=== PATIENT | male | born 1995 | race Caucasian/White ===

== ENCOUNTER 2021-03-18 22:26 | Emergency (ER) | payer BC, MEDICAID ==
[~2021-03-18] VITALS: Ht 195.6 cm; Wt 81.6 kg
[2021-03-18 22:42] VITALS: BP 140/87
[2021-03-18 23:14] LABS: BASOPHILS % (AUTO) 0 % (0-10); EOSINOPHILS # (AUTO) 0.1 10^3/uL (0.0-0.3); EOSINOPHILS % (AUTO) 2 % (0-10); HEMATOCRIT 45 % (40-54); HEMOGLOBIN 15.4 g/dL (13.3-17.7); LYMPHOCYTES % (AUTO) 17 % (12-44); MEAN CORPUSCULAR HEMOGLOBIN 30 pg (25-34); MEAN CORPUSCULAR HGB CONC 34 g/dL (32-36); MEAN CORPUSCULAR VOLUME 87 fL (80-99); MEAN PLATELET VOLUME 9.4 fL (9.0-12.2); MONOCYTES # (AUTO) 1.3 10^3/uL (0.0-1.0); MONOCYTES % (AUTO) 22 % (0-12); NEUTROPHILS # (AUTO) 3.3 10^3/uL (1.8-7.8); NEUTROPHILS % (AUTO) 58 % (42-75); PLATELET COUNT 225 10^3/uL (130-400); WHITE BLOOD COUNT 5.7 10^3/uL (4.3-11.0)
[2021-03-18] MEDS ORDERED: NS IV 1000 ML 1,000 ML IV SCH (23:15)
[2021-03-18] MEDS ORDERED: ACETAMINOPHEN 500 MG TAB (TYLENOL) PO ONE (23:15)
--- NOTE | 2021-03-18 23:16 | ED General ---
General Chief Complaint: Fever-Adult/Adol Stated Complaint: COVID POSITIVE Nursing Triage Note: AMBULATES TO ROOM #9 W/CO FEVER AND DIZZINESS STATES HIS TESTED + FOR COVID-19 "SEVERAL DAYS AGO" AND HE BEGAN TO EXPERIENCE SX ON 03/17/21. PT NOTED TO BE ANXIOUS AND HYPERVENTILATING. STATES HIS EXTREMITIES ARE NUMB. PT STATES,"I FEEL LIKE MY BRAIN IS SWOLLEN." Source of Information: Patient Exam Limitations: No Limitations History of Present Illness Date Seen by Provider: Mar 18, 2021 Time Seen by Provider: 23:00 Initial Comments Patient is a 25-year-old male who presents to the emergency department today with a chief complaint of being exposed to Covid. His tested positive for Covid several days ago and he started experiencing symptoms yesterday. From what I can get out of the patient he is having generalized malaise and fatigue. He is having some shortness of breath. He is having some diarrhea. He has had fever. He has been taking Tylenol and/or ibuprofen, he is unclear and states that his has been giving it to him. He thinks his last dose was around 8:00 this evening. He is obviously having an anxiety attack and quite tachypneic with oxygen saturations at 100%. Complaining of numbness and tingling to his hands and feet. Otherwise the patient is in no acute distress. Blood pressure is good heart rate is in the 120s to 140s. He is febrile at 102. Patient is a poor historian and does not answer questions briskly. He seems to be very anxious. Timing/Duration: 24 Hours Severity: Moderate Associated Systoms: Cough, Fever/Chills, Headaches, Malaise, Shortness of Air, Weakness Allergies and Home Medications Allergies Coded Allergies: No Known Drug Allergies (Unverified , 03/18/21) Patient Home Medication List Home Medication List Reviewed: Yes Review of Systems Review of Systems Constitutional: see HPI EENTM: throat pain Respiratory: cough, short of breath Cardiovascular: palpitations Gastrointestinal: diarrhea Genitourinary: frequency Musculoskeletal: muscle cramps Skin: no symptoms reported Psychiatric/Neurological: Anxiety, Paresthesia All Other Systems Reviewed Negative Unless Noted: Yes Past Jlezqhp-Feeuqi-Socfuf Hx Patient Social History Tobacco Use?: No Pt feels they are or have been: No Physical Exam Vital Signs Vital Signs - First Documented 03/18/21 22:42 Temp 38.9 Pulse 120 Resp 26 B/P (MAP) 140/87 (104) Pulse Ox 100 O2 Delivery Room Air Capillary Refill : Less Than 3 Seconds Height, Weight, BMI Height: '" Weight: lbs. oz. kg; 21.00 BMI Method: General Appearance: WD/WN, Anxious Eyes: Bilateral Eye Normal Inspection, Bilateral Eye PERRL, Bilateral Eye EOMI HEENT: Normal ENT Inspection, Pharynx Normal Neck: Full Range of Motion, Normal Inspection, Non Tender Respiratory: Lungs Clear, Normal Breath Sounds, No Accessory Muscle Use, No Respiratory Distress Cardiovascular: Regular Rate, Rhythm, Tachycardia Gastrointestinal: Normal Bowel Sounds, Non Tender, Soft Extremity: Normal Inspection, Normal Range of Motion, Non Tender, No Calf Tenderness Neurologic/Psychiatric: Alert, Oriented x3, No Motor/Sensory Deficits, Other (Very anxious appearing) Skin: Normal Color, Warm/Dry Progress/Results/Core Measures Suspected Sepsis SIRS Temperature: Pulse: 120 Respiratory Rate: 26 Laboratory Tests 03/18/21 23:00: White Blood Count 5.7 Blood Pressure 140 /87 Mean: 104 Laboratory Tests 03/18/21 23:00: Creatinine 1.22, Platelet Count 225, Total Bilirubin 0.5 Results/Orders Lab Results Laboratory Tests Test 03/18/21 23:00 03/18/21 23:10 Range/Units White Blood Count 5.7 4.3-11.0 10^3/uL Red Blood Count 5.16 4.30-5.52 10^6/uL Hemoglobin 15.4 13.3-17.7 g/dL Hematocrit 45 40-54 % Mean Corpuscular Volume 87 80-99 fL Mean Corpuscular Hemoglobin 30 25-34 pg Mean Corpuscular Hemoglobin Concent 34 32-36 g/dL Red Cell Distribution Width 12.3 10.0-14.5 % Platelet Count 225 130-400 10^3/uL Mean Platelet Volume 9.4 9.0-12.2 fL Immature Granulocyte % (Auto) 0 % Neutrophils (%) (Auto) 58 42-75 % Lymphocytes (%) (Auto) 17 12-44 % Monocytes (%) (Auto) 22 H 0-12 % Eosinophils (%) (Auto) 2 0-10 % Basophils (%) (Auto) 0 0-10 % Neutrophils # (Auto) 3.3 1.8-7.8 10^3/uL Lymphocytes # (Auto) 1.0 1.0-4.0 10^3/uL Monocytes # (Auto) 1.3 H 0.0-1.0 10^3/uL Eosinophils # (Auto) 0.1 0.0-0.3 10^3/uL Basophils # (Auto) 0.0 0.0-0.1 10^3/uL Immature Granulocyte # (Auto) 0.0 0.0-0.1 10^3/uL Neutrophils % (Manual) 66 % Lymphocytes % (Manual) 16 % Monocytes % (Manual) 17 % Band Neutrophils 1 % Sodium Level 137 135-145 MMOL/L Potassium Level 3.2 L 3.6-5.0 MMOL/L Chloride Level 103 98-107 MMOL/L Carbon Dioxide Level 17 L 21-32 MMOL/L Anion Gap 17 H 5-14 MMOL/L Blood Urea Nitrogen 8 7-18 MG/DL Creatinine 1.22 0.60-1.30 MG/DL Estimat Glomerular Filtration Rate > 60 BUN/Creatinine Ratio 7 Glucose Level 152 H 70-105 MG/DL Calcium Level 9.7 8.5-10.1 MG/DL Corrected Calcium 8.5-10.1 MG/DL Total Bilirubin 0.5 0.1-1.0 MG/DL Aspartate Amino Transf (AST/SGOT) 21 5-34 U/L Alanine Aminotransferase (ALT/SGPT) 20 0-55 U/L Alkaline Phosphatase 44 40-136 U/L Total Protein 7.4 6.4-8.2 GM/DL Albumin 4.7 H 3.2-4.5 GM/DL SARS-CoV-2 RNA (RT-PCR) Detected H Not Detecte My Orders Orders - DINO RIOS MD Ed Iv/Invasive Line Start (03/18/21 23:08) Cbc With Automated Diff (03/18/21 23:08) Comprehensive Metabolic Panel (03/18/21 23:08) Chest 1 View, Ap/Pa Only (03/18/21 23:08) Covid 19 Inhouse Test (03/18/21 23:08) Acetaminophen Tablet (Tylenol Tablet) (03/18/21 23:15) Ns Iv 1000 Ml (Sodium Chloride 0.9%) (03/18/21 23:15) Manual Differential (03/18/21 23:00) Medications Given in ED Current Medications Medications Dose Ordered Sig/Alexia Route Start Time Stop Time Status Last Admin Dose Admin Acetaminophen 1,000 mg ONCE ONCE PO 03/18/21 23:15 03/18/21 23:16 DC 03/18/21 23:21 1,000 MG Vital Signs/I&O 03/18/21 22:42 Temp 38.9 Pulse 120 Resp 26 B/P (MAP) 140/87 (104) Pulse Ox 100 O2 Delivery Room Air Capillary Refill : Less Than 3 Seconds Blood Pressure Mean: 104 Progress Note : Time: 00:22 Progress Note Patient reevaluated, heart rate down to about 107. He has completed a liter of fluids. Patient states that he feels a little bit better. Labs have been reviewed and are all within normal limits. His chest x-ray is reviewed and he does not have Covid pneumonia. His Covid PCR however is positive. I have counseled the patient on quarantine. I have advised lots of fluids over the course of the next several days as well as alternating Tylenol and ibuprofen. The patient verbalizes understanding. All questions have been sought and answered. Patient is stable for discharge. Departure Impression Primary Impression: COVID-19 Disposition: 01 HOME, SELF-CARE Condition: Stable Departure-Patient Inst. Decision time for Depature: 00:23 Referrals: [facility] [place]ructions: COVID-19 ED Add. Discharge Instructions: Drink lots of fluids so that you stay well-hydrated. Alternate [id number] extra strength Tylenol, 2 tablets every 4-6 hours with ibuprofen, 600 mg which is 3 tablets every 6-8 hours. Always take ibuprofen with food. Take these medications for fever over 100.4 as well as body aches and pains. Follow-up with your primary care physician. Return to the emergency room for any new, concerning or emergent complaints. DINO RIOS MD Mar 18, 2021 23:16
[2021-03-18 23:23] LABS: ALBUMIN 4.7 GM/DL (3.2-4.5); CHLORIDE 103 MMOL/L (98-107); POTASSIUM 3.2 MMOL/L (3.6-5.0); SODIUM 137 MMOL/L (135-145)
[2021-03-18 23:24] LABS: CALCIUM 9.7 MG/DL (8.5-10.1)
[2021-03-18 23:25] LABS: GLUCOSE 152 MG/DL (70-105); TOTAL PROTEIN 7.4 GM/DL (6.4-8.2)
[2021-03-18 23:27] LABS: BILIRUBIN,TOTAL 0.5 MG/DL (0.1-1.0); CARBON DIOXIDE 17 MMOL/L (21-32)
[2021-03-18 23:29] LABS: ALKALINE PHOSPHATASE 44 U/L (40-136); CREATININE SERUM 1.22 MG/DL (0.60-1.30); GFR ESTIMATED > 60
[2021-03-18 23:30] LABS: BUN/CREATININE RATIO 7
[2021-03-18 23:32] LABS: ALANINE AMINOTRANSFERASE 20 U/L (0-55)
[2021-03-18 23:59] LABS: BAND NEUTROPHILS 1 %; LYMPHOCYTES % (MANUAL) 16 %; MONOCYTES % (MANUAL) 17 %; NEUTROPHILS % (MANUAL) 66 %
--- NOTE | 2021-03-19 07:17 | Diagnostic Imaging Report ---
INDICATION: Shortness of breath COMPARISON: None available TECHNIQUE: Single radiograph of the chest dated 03/18/2021 FINDINGS: The cardiac silhouette and pulmonary vasculature within normal limits. The lungs are clear. No pleural effusion. No pneumothorax. No acute osseous abnormality. IMPRESSION: No acute cardiopulmonary abnormality. Dictated by: Dictated on workstation # [id number]
== END 2021-03-19 00:30 | disposition home or self-care (01) ==
LOC: EDUNIT# 22:26 → ER 22:30
DX: U07.1 COVID-19 (principal)
CPT/HCPCS: 36415; 71045; 80053; 85007; 85027; 87636